=== PATIENT | female | born 1985 | race Caucasian/White ===

== ENCOUNTER → 2020-09-10 22:42 | Outpatient (REF) | payer OTHER, SELFPAY ==
[2020-09-10 21:21] LABS: MCH 29.7 pg (27.0-33.0); MCHC 32.5 % (32.0-36.0); MCV 91.3 fL (80-95); MPV 11.2 fL (8.0-11.0); Platelet Count 240 10^3/uL (130-400); RBC 4.38 10^6/uL (3.93-5.22); RDW 12.2 % (11.7-14.6); RDW-SD 40.2 fL; WBC 8.57 10^3/uL (4.4-10.8)
== END ==
LOC: NCHCN 22:42
PROVIDERS: Visit Provider Nurse Practitioner Family
DX: R53.83 Other fatigue (principal); D64.9 Anemia, unspecified
CPT/HCPCS: 85027; 84443

== ENCOUNTER 2020-12-07 16:47 | Outpatient (REF) | payer OTHER, SELFPAY ==
--- NOTE | 2020-12-07 15:30 | PAPFT_PTH ---
PATIENT: Sarina Arguello LOC: [facility] U#:[id number] AGE/SX: 35/F ROOM: RE12/07/[address]: Piedad Marte NP : 1985 BED: DIS: 12/07/2020 SPEC #: [id number] RECD: 12/07/20 17:18 STATUS: TIFFANI TIPTON #: [id number] VAMSI: 12/07/20 15:[address]: Piedad Marte NP [facility]PT[facility] RECD BY: Dayan Beal ENTERED: 12/07/20 17:18 SP TYPE: PAPFT OTHR DR: Bea Naranjo Tissues: 1 - CX/ENDOCX FOR PAP SMEARS Procedures: PAP THIN PREP/[facility] Screening Comments: [id number]
== END 2020-12-07 16:48 | disposition home or self-care (01) ==
LOC: LBN 16:47
PROVIDERS: PCP Nurse Practitioner Family; Visit Provider Nurse Practitioner Women's Health
DX: Z12.4 Encounter for screening for malignant neoplasm of cervix (principal)
CPT/HCPCS: 88142

== ENCOUNTER 2021-01-14 06:35 | Outpatient (CLI) | payer OTHER, SELFPAY ==
--- NOTE | 2021-01-14 | DI.RAD_ITS ---
EXAM: XR SACRUM COCCYX CLINICAL HISTORY: COCCYX PAIN, M53.3. TECHNIQUE: 2D digital imaging was performed. COMPARISON: No exams were available for comparison FINDINGS: There is no evidence of sacral or coccyx fracture. No osseous lesions. Incidentally noted is transitional osseous anatomy at the lumbosacral junction. Sacroiliac joints appear unremarkable. IMPRESSION: As above. No fracture evident DATA REPOSITORY: RADIATION DOSE DELIVERED:
--- NOTE | 2021-01-14 16:37 | DI.VRAD_ITS ---
PROCEDURE INFORMATION: Exam: XR Sacrum and Coccyx, 2 or More Views Exam date and time: 01/14/2021 4:19 PM Age: 35 years old Clinical indication: Other: Coccyx pain TECHNIQUE: Imaging protocol: XR of the sacrum and coccyx, 2 or more views. COMPARISON: No relevant prior studies available. FINDINGS: Bones/joints: There is mild grade 1 retrolisthesis of L5 over S1. No acute fracture or dislocation. Soft tissues: Normal. IMPRESSION: No acute fracture or dislocation. Dictated and Authenticated by: Froylan Severino MD. Ordering:JOSE LUIS Figueredo MD
== END 2021-01-14 06:55 ==
PROVIDERS: PCP Nurse Practitioner Family; Visit Provider Nurse Practitioner Family
DX: M53.3 Sacrococcygeal disorders, not elsewhere classified (principal)
CPT/HCPCS: 72220

== ENCOUNTER 2022-05-03 04:41 | Emergency (ER) | payer OTHER, SELFPAY ==
[2022-05-03 05:07] VITALS: BP 130/76; PULSE 71; RESP 16; TEMP 37.1; O2SAT 97
--- NOTE | 2022-05-03 05:15 | DI.CT_ITS ---
Exam(s) CT ABDOMEN PELVIS WO EXAM: CT ABDOMEN PELVIS WO CLINICAL HISTORY: right sided abdomen pain. TECHNIQUE: Imaging Protocol: Axial computed tomography images with coronal and sagittal reformatted images were created and reviewed. Oral: yes / no COMPARISON: No exams were available for comparison FINDINGS: ABDOMEN: Lung Bases: Normal where visualized. Liver: Normal density. No measurable mass. Gallbladder and biliary tract: No radiodense calculus or dilation. Pancreas: Normal density, no abnormal calcifications or inflammatory process. Spleen: Normal. Kidneys: Normal size, contour and axis. No radiodense stones or obstructive uropathy. No masses seen. Adrenal glands: No masses seen. Lymph nodes: Within normal limits. Abdominal Aorta: Abdominal portion non-dilated. PELVIS: Bladder: Symmetric distention, no gross wall thickening. Bowel: No obstruction or bowel wall thickening. Peritoneal cavity: There is a small amount of fluid in the cul-de-sac. Reproductive organs: Bilateral adnexal cysts, right greater than left. The right measures 8 x 5.1 x 4.8 cm. The left measures 5.4 x 4.7 x 3 5 cm. Bones: Within normal limits. IMPRESSION: Bilateral adnexal cysts. Ultrasound could be performed for further evaluation. RADIATION DOSE DELIVERED: 1,098.18mGy.cm Total DLP DATA REPOSITORY: All CT scans at this facility are submitted to the National Radiology Data Registry (NRDR) Dose Index Registry (DIR) with the [employer] (ACR). RADIATION OPTIMIZATION: All CT scans at this facility use at least one of these dose optimization te chniques: automated exposure control; mA and/or kV adjustment per patient size (includes targeted exa ms where dose is matched to clinical indication); or iterative reconstruction.
--- NOTE | 2022-05-03 05:30 | ED.GENADUL_ITS ---
Discharge Plan Disposition Patient Disposition: STILL A PATIENT Condition: Stable Discharge Details Chief Complaint: Abd Prob Clinical Impression: Abdominal pain Primary Care Provider: Bea Naranjo ED Provider: Ming Marte Home Meds and New Rx's Prescriptions: No Action Nexplanon 68 mg implant 1 implant subdermal ONCE Rx Instructions: as a single dose Medical Decision Making 36 yo female who denies chronic medical problems or prior abdominal surgeries comes in with chief complaint of abdominal pain. She states it started last night while watching television and has been constant throughout the night. She states it is a cramping and stabbing sensation in the lower right abdomen. Denies fevers, vomit, vaginal bleeding or discharge. She arrives stable speaking in full sentences. She has a soft abdomen and is tender in the rlq without guarding, no upper abdomen tenderness. Given location of the pain concern for appendicitis, will obtain labs and obtain ct to further evaluate. labs unremarkable, she remains stable, some improvement with toradol, minimal rlq tenderness on repeat exam, awaiting vrad report pt signed out to oncoming provider pending radiology read and reassessment Differential Diagnosis Differential Diagnosis: appendicitis, ovarian cyst Lab Data Lab results reviewed: Yes I reviewed the patient's lab results. HPI General Mode of arrival: ambulatory . Date/Time Provider Initiated Documentation: 05/03/22 04:42 . Limitations to Documentation: no limitations . Information obtained by: patient . History of Present Illness 36 year old F presents to the emergency department with the chief complaint of right lower abdomen pain, described as moderate, Quality is described as aching, and is localized to the abdomen. Patient reports no radiation. Patient started experiencing this day(s) (1) and it has been constant. No relieving factors improve symptom(s), No exacerbating factors reported . Patient notes no other symptoms.. Patient did receive the following treatments prior to arrival, none Related Data Home Medications Medication Instructions Recorded Confirmed etonogestrel 68 mg subdermal 1 implant subdermal ONCE 12/28/20 05/03/22 implant (Nexplanon) Allergies Allergy/AdvReac Type Severity Reaction Status Date / Time Penicillins Allergy Mild Skin Rash Verified 05/03/22 05:10 General Stated Complaint: Abd Prob EAN: 3 Review of Systems All systems reviewed & are unremarkable except as noted in HPI and below Constitutional Constitutional: Denies chills, Denies fever(s) and Denies weakness Eyes Eyes: Denies loss of vision ENT Ears, Nose, Mouth, and Throat: Denies change in voice Cardiovascular Cardiovascular: Denies chest pain and Denies dyspnea Respiratory Respiratory: Denies cough and Denies dyspnea Gastrointestinal Gastrointestinal: Denies vomiting Genitourinary Genitourinary: Denies dysuria Musculoskeletal Musculoskeletal: Denies joint swelling Neurologic Neurologic: Denies loss of vision and Denies weakness PFSH All Active Problems Abdominal pain (Acute) Presence of subdermal contraceptive implant (Acute 12/28/20) Medical History (Updated 05/03/22 @ 07:19 by Ming Marte MD) Tendonitis of shoulder, right Surgical History Cervical Conization/LEEP H/O LEEP (03/30/17) Family History Mother Addisons disease Asthma Father Personal history of malignant neoplasm lymphoma 2013 Social History Smoking/Tobacco Use Status: Former Tobacco Use Smoking risk assessment performed?: Yes Alcohol Intake: current Alcohol Intake frequency: a few times a month Drug use: Never Substance use type: does not use Do you feel safe at home: Yes Do you feel safe in your relationship?: Yes Female Reproductive History Menstrual control method: implanted History History 3 Para 2 Hx # Term Pregnancies Multiple births Hx # Pregnancies Ectopic pregnancies AB induced Hx Number of Living Children AB spontaneous 1 Exam Const General: no acute distress Orientation: alert HENMT Head: normal to inspection Ears: external ears normal General nose exam: external nose normal Mouth: moist mucous membranes Eyes General: appearance normal, both eyes and all related structures Neck Neck: normal visual inspection Resp Effort & Inspection: normal respiratory effort and able to speak in complete sentences Cardio Rate: regular rate GI Palpation: soft and tender Skin General skin exam: no rashes or lesions noted Neuro General: patient alert and patient oriented x3 Extrem General: normal to inspection Psych Mental Status: mental status grossly normal Course Vital Signs Vital signs: Vital Signs Temperature 37.1 C 05/03/22 05:07 Pulse 71 05/03/22 05:07 Respiratory Rate 16 05/03/22 05:07 Blood Pressure 130/76 05/03/22 05:07 Pulse Oximetry 97 05/03/22 05:07 Temperature 37.1 C 05/03/22 05:07 Temperature Source Skin 05/03/22 05:07 Pulse 71 05/03/22 05:07 Respiratory Rate 16 05/03/22 05:07 Respiratory Effort Short of Breath 05/03/22 05:10 Blood Pressure 130/76 05/03/22 05:07 Pulse Oximetry 97 05/03/22 05:07 Pain Level 7 05/03/22 05:07 Lab/Test Results Lab/Test Results: POC- Test(urine) Negative
[2022-05-03 06:14] LABS: Source Nasal/Nares
[2022-05-03 06:15] LABS: Abs Immature Grans 0.01 10^3/uL (0.0-0.06); Absolute Basophil Count 0.02 10^3/uL (0.0-0.2); Absolute Eosinophil Count 0.08 10^3/uL (0.0-0.7); Absolute Lymphocyte Count 1.54 10^3/uL (1.2-3.4); Absolute Monocyte Count 0.47 10^3/uL (0.1-0.8); Absolute Neutrophil Count 3.42 10^3/uL (1.2-6.7); Basophils % 0.4; Eosinophils % 1.4; HCT 37.1 % (36.0-46.0); HGB 12.2 g/dL (11.2-15.7); Immature Grans % 0.2; Lymphocytes % 27.8; MCHC 32.9 % (32.0-36.0); MCV 91 fL (80-95); MPV 10.7 fL (8.0-11.0); Monocytes % 8.5; Neutrophils % 61.7; Platelet Count 204 10^3/uL (130-400); RBC 4.07 10^6/uL (3.93-5.22); RDW 12.4 % (11.7-14.6); RDW-SD 40.9 fL; WBC 5.54 10^3/uL (4.4-10.8)
[2022-05-03] MEDS: Ketorolac 15 MG/ML VIAL IVP ×2 (06:18→08:21)
[2022-05-03] MEDS: Normal Saline 1,000 ML 1000 ML IV (06:19)
[2022-05-03 06:34] LABS: Calcium 8.3 mg/dL (8.5-10.1); Magnesium 1.9 mg/dL (1.8-2.4)
[2022-05-03 06:35] LABS: BUN 13 mg/dL (7-18); Glucose 106 mg/dL (74-106)
[2022-05-03 06:36] LABS: Albumin 3.4 g/dL (3.4-5.0); CREATININE 0.7 mg/dL (0.55-1.02); Total Protein 6.3 g/dL (6.4-8.2)
[2022-05-03 06:37] LABS: ALT 23 U/L (14-59); AST 13 U/L (15-37); Alkaline Phosphatase 73 U/L (46-116); Anion Gap 6.1 mmol/L (3-11); Bilirubin, Total 0.3 mg/dL (0.2-1.0); CO2 25.9 mmol/L (21.0-32.0); Chloride 109 mmol/L (98-107); Lipase 41 U/L (73-393); Potassium 4.3 mmol/L (3.5-5.1); Sodium 141 mmol/L (136-145)
[2022-05-03 06:46] LABS: COVID-19 PCR Negative (Negative)
[2022-05-03 07:09] LABS: Bilirubin Negative (Negative); Blood Negative (Negative); Clarity Sl Cloudy (Clear); Glucose Negative (Negative); Ketones Negative (Negative); Leukocyte Esterase Negative (Negative); Nitrite Negative (Negative); Specific Gravity 1.025 (1.005-1.025); Urobilinogen 0.2 EU/dL (Up TO 0.2)
--- NOTE | 2022-05-03 07:26 | NUR.NOTE ---
pts pain is beginning to increase, pt states 04/03 jm
--- NOTE | 2022-05-03 09:00 | DI.US_ITS ---
Exam(s) US PELVIS TRANSVAGINAL EXAM: US PELVIS TRANSVAGINAL CLINICAL HISTORY: bilateral ovarian cysts, pelvic pain TECHNIQUE: Transabdominal and transvaginal imaging was performed using standard protocol. COMPARISON: CT CT ABDOMEN PELVIS WO from 05/03/2022 FINDINGS: UTERUS: Anteverted. 8.7 x 4.5 x 5.9 cm Endometrium: 11 millimeters Myometrium: Unremarkable. Cervix: Unremarkable. OVARIES: Right: Cyst or mass: 3 simple cysts, measuring 3.2, 3.3 and 4.2 cm in greatest dimension. And Left: Cyst or mass: 4.7 centimeter maximal dimension simple cyst. DOPPLER: Color: Symmetric and uniform flow to both ovaries. No hyperemia. Duplex: Normal ovarian arterial waveforms visualized. CUL-DE-SAC: Free fluid: Small amount of fluid adjacent to both ovaries. IMPRESSION: 1. Normal-appearing uterus with endometrial stripe within normal limits. 2. Bilateral simple ovarian cysts. DATA REPOSITORY:
--- NOTE | 2022-05-03 09:02 | DI.VRAD_ITS ---
PROCEDURE INFORMATION: Exam: CT Abdomen And Pelvis Without Contrast Exam date and time: 05/03/2022 6:29 AM Age: 36 years old Clinical indication: Abdominal pain; Localized; Right lower quadrant (rlq); Patient HX: Right sided abdomen pain TECHNIQUE: Imaging protocol: Computed tomography of the abdomen and pelvis without contrast. Radiation optimization: All CT scans at this facility use at least one of these dose optimization techniques: automated exposure control; mA and/or kV adjustment per patient size (includes targeted exams where dose is matched to clinical indication); or iterative reconstruction. COMPARISON: OB US 2-3 TRIMESTER TRANSABD*P 06/06/2017 3:12 PM FINDINGS: Liver: Normal. No mass. Gallbladder and bile ducts: Normal. No calcified stones. No ductal dilation. Pancreas: Normal. No ductal dilation. Spleen: Normal. No splenomegaly. Adrenal glands: Normal. No mass. Kidneys and ureters: Normal. No hydronephrosis. Stomach and bowel: Unremarkable. No obstruction. No mucosal thickening. Appendix: No evidence of appendicitis. Intraperitoneal space: See Reproductive finding. Vasculature: Unremarkable. No abdominal aortic aneurysm. Lymph nodes: Unremarkable. No enlarged lymph nodes. Urinary bladder: Unremarkable as visualized. Reproductive: There is a right adnexal cystic structure measuring 8.0 x 5.1 x 4.8 cm (series 2, image 76). There is a left adnexal cystic structure measuring 5.4 x 4.7 x 3.5 cm (series 2, image 78). Small volume of free fluid within the pelvis. Bones/joints: Unremarkable. No acute fracture. Soft tissues: Unremarkable. IMPRESSION: 1. There is a right adnexal cystic structure measuring 8.0 x 5.1 x 4.8 cm (series 2, image 76). 2. There is a left adnexal cystic structure measuring 5.4 x 4.7 x 3.5 cm (series 2, image 78). Small volume of free fluid within the pelvis. Further evaluation with ultrasound is recommended to characterize. (Reference: Jluis) References: Jluis et al. Management of Incidental Adnexal Findings on CT and MRI: A White Paper of the ACR Incidental Findings Committee, J Am Steve Radiol. 2019;17(2):248-254. Dictated and Authenticated by: John Tesfaye MD. Ordering:RYLEY Lai MD
[2022-05-03 09:39] VITALS: BP 111/70; PULSE 63; RESP 18; TEMP 36.7; O2SAT 97
--- NOTE | 2022-05-03 11:33 | PDOC.ERCMPRO ---
- If Service Date Differs Date of service: 05/03/22 Time of Service: 11:33 Care Management Progress Note SBIRT screen: negative. Pt reports low risk alcohol use and no other substance use or mental health symptoms.
--- NOTE | 2022-05-03 11:38 | W.EDPROG ---
Date of service: 05/03/22 Time of Service: 11:38 Medical Decision Making Patient resting comfortably no acute distress. Evidence of bilateral ovarian cyst. No evidence of ovarian torsion on ultrasound. Patient will follow up with women's wellness. Given home care instructions and return precautions given. Sign Out Sign Out Data: Sign Out Comment: right lower abdomen pain since last night, labs unremarkable, pending CT results and reassessment Last updated by Ming Marte MD at 05/03/22 07:20 Discharge Plan Disposition Patient Disposition: HOME Condition: Improving Discharge Details Clinical Impression: Abdominal pain, Ovarian cyst Primary Care Provider: Bea Naranjo ED Provider: Dennis Marrero Home Meds and New Rx's Prescriptions: No Action Nexplanon 68 mg implant 1 implant subdermal ONCE Rx Instructions: as a single dose Discharge Instructions Instructions: Ovarian Cyst (ED) Additional Instructions: Please follow-up with women's wellness this week or next week. Please return to the emergency department for any worsening symptoms.
== END 2022-05-03 11:48 | disposition home or self-care (01) ==
PROVIDERS: Emergency Medicine; Emergency Provider Emergency Medicine; PCP Nurse Practitioner Family
DX: N83.201 Unspecified ovarian cyst, right side (principal); N83.202 Unspecified ovarian cyst, left side; Z87.891 Personal history of nicotine dependence; Z97.5 Presence of (intrauterine) contraceptive device; Z20.822 Contact with and (suspected) exposure to COVID-19
CPT/HCPCS: 80053; 81025; 83690; 87635; 96361; 96374; 96376; 99284; 74176; 76830; 76856; 81003; 83735; 85025; J1885

== ENCOUNTER 2022-05-08 20:34 | Emergency (ER) | payer OTHER, SELFPAY ==
[2022-05-08 21:12] VITALS: BP 135/77; PULSE 64; RESP 18; TEMP 37.1; O2SAT 100
[2022-05-08 21:29] LABS: Abs Immature Grans 0.02 10^3/uL (0.0-0.06); Absolute Basophil Count 0.02 10^3/uL (0.0-0.2); Absolute Eosinophil Count 0.04 10^3/uL (0.0-0.7); Absolute Monocyte Count 0.54 10^3/uL (0.1-0.8); Basophils % 0.3; Eosinophils % 0.5; HCT 36.6 % (36.0-46.0); HGB 12.3 g/dL (11.2-15.7); Immature Grans % 0.3; Lymphocytes % 22.7; MCH 30.1 pg (27.0-33.0); MCHC 33.6 % (32.0-36.0); MCV 90 fL (80-95); MPV 10.8 fL (8.0-11.0); Monocytes % 6.8; Neutrophils % 69.4; Platelet Count 219 10^3/uL (130-400); RBC 4.08 10^6/uL (3.93-5.22); RDW 12.1 % (11.7-14.6); RDW-SD 39.6 fL; WBC 7.92 10^3/uL (4.4-10.8)
--- NOTE | 2022-05-08 21:35 | W.ED.GENAD ---
Discharge Plan Disposition Patient Disposition: HOME Condition: Improving Discharge Details Clinical Impression: Abdominal pain Primary Care Provider: Bea Naranjo ED Provider: Gera Lloyd Home Meds and New Rx's Prescriptions: Continued Nexplanon 68 mg implant 1 implant subdermal ONCE Rx Instructions: as a single dose ibuprofen 800 mg tablet 800 mg PO Q6H Discharge Instructions Instructions: Abdominal Pain (ED) Additional Instructions: Oxycodone as directed, this medication may cause drowsiness and/or constipation. Continue taking ibuprofen as directed. You may want to consider taking [id number] stool softener while taking oxycodone. Please watch for new or worsening symptoms and return to the ER for any concerns. Lastly, I would like you to contact your RADIOLOGY EQUIPMENT SERVICER tomorrow to make them aware of your return ER visit, ongoing pain, need for outpatient reevaluation. Medical Decision Making This is an otherwise healthy 36-year-old female presenting to the ER for 2-week history of right lower quadrant pain intermittent but now worse today, initially seen in the ER on Monday, CT and ultrasound revealed ovarian cyst, subsequently followed up with her RADIOLOGY EQUIPMENT SERVICER and set for a 6-week ultrasound. Patient reports that she is sexually active with 1 partner, no risk of STD. She denies fever, vomiting, back pain, dysuria, hematuria, diarrhea or constipation. Reports that she has her menstrual cycle now which seems to be normal, no additional discharge. Clinically she appears well, nontoxic, hemodynamically stable. Patient does have right lower quadrant discomfort however no rebound or McBurney point tenderness. She has no fever, denies lack of appetite, low suspicion for appendicitis. Symptoms have been present for 2 weeks, low suspicion for ovarian torsion. We discussed awaiting a test before providing IV Toradol but patient states that there is no way she could be , she has her menstrual cycle currently, and she has the Nexplanon implant. Plan is to obtain IV access, give IV Toradol, obtain routine screening laboratory values and reassess. CBC, CMP, lipase all unremarkable. Patient unable to provide a urine sample Patient reports no relief with IV Toradol. We discussed repeat CT imaging tonight, heading up for ultrasound tomorrow, and a pelvic exam. At this time patient declines this more focused on pain control. We will provide 1 mg IV Dilaudid. Patient reports significant relief of discomfort. She states that she is ready to be discharged home. I reminded her that she has not provided a urine sample. She was able to immediately provide a urine sample. Reveals large blood greater than 50 red cells, no signs of infection, patient does have her period and likely contamination. Examination is not consistent with renal stone. Discussed results with patient. She is again requesting discharge. She is concerned that her pain may come back overnight. We will provide a take-home pack of oxycodone Strict discharge and return precautions were provided. Patient understands, is agreeable to this plan, and has no additional questions or concerns upon discharge. This documentation was generated using [employer] system, please disregard any oddities of phrase or misspellings. Medical Records Medical records reviewed: Yes I reviewed the patient's medical records. Lab Data Lab results reviewed: Yes I reviewed the patient's lab results. Labs: Laboratory Tests Range/Units 05/08/22 05/08/22 05/08/22 21:20 21:20 22:35 WBC (4.4-10.8) 10^3/uL 7.92 RBC (3.93-5.22) 10^6/uL 4.08 Hgb (11.2-15.7) g/dL 12.3 Hct (36.0-46.0) % 36.6 MCV (80-95) fL 90 MCH (27.0-33.0) pg 30.1 MCHC (32.0-36.0) % 33.6 RDW (11.7-14.6) % 12.1 Plt Count (130-400) 10^3/uL 219 MPV (8.0-11.0) fL 10.8 Immature Gran % 0.3 Neutrophils % 69.4 Lymphocytes % 22.7 Monocytes % 6.8 Eosinophils % 0.5 Basophils % 0.3 Nucleated RBC % (0.0-0.3) % 0.0 Absolute Neutrophils (1.2-6.7) 10^3/uL 5.50 Absolute Lymphocytes (1.2-3.4) 10^3/uL 1.80 Absolute Monocytes (0.1-0.8) 10^3/uL 0.54 Absolute Eosinophils (0.0-0.7) 10^3/uL 0.04 Absolute Basophils (0.0-0.2) 10^3/uL 0.02 Sodium (136-145) mmol/L 142 Potassium (3.5-5.1) mmol/L 3.8 Chloride (98-107) mmol/L 108 H Carbon Dioxide (21.0-32.0) mmol/L 27.4 Anion Gap (3-11) mmol/L 6.6 BUN (7-18) mg/dL 11 Creatinine (0.55-1.02) mg/dL 0.7 Estimated GFR/1.73 m2 (mL/min/1.73m2) >= 60.00 Glucose (74-106) mg/dL 109 H Calcium (8.5-10.1) mg/dL 8.2 L Total Bilirubin (0.2-1.0) mg/dL 0.4 AST (15-37) U/L 10 L ALT (14-59) U/L 24 Alkaline Phosphatase (46-116) U/L 79 Total Protein (6.4-8.2) g/dL 6.6 Albumin (3.4-5.0) g/dL 3.6 Lipase (73-393) U/L 57 Urine Color (Yellow) Yellow Urine Clarity (Clear) Sl Cloudy Urine pH (5-8) 6.0 Ur Specific [place] (1.005-1.025) >= 1.030 H Urine Protein (Negative) mg/dL 30 H Urine Ketones (Negative) mg/dL Negative Urine Blood (Negative) Large H Urine Nitrite (Negative) Negative Urine Bilirubin (Negative) Negative Urine Urobilinogen (Up TO 0.2) EU/dL 0.2 Ur Leukocyte Esterase (Negative) Negative Urine RBC (0-2) HPF >50 H Urine WBC (0-5) HPF Ur Epithelial Cells (Negative) HPF Moderate Urine Crystals Not Applicable Urine Bacteria (Negative) HPF Urine Mucus (Negative) Ur Culture Indicated? No/Sq. Contamination Urine Glucose (Negative) mg/dL Negative HPI General Mode of arrival: ambulatory. Date/Time Provider Initiated Documentation: 05/08/22 20:36. Limitations to Documentation: no limitations. Information obtained by: patient. History of Present Illness 36 year old F presents to the emergency department with the chief complaint of RLQ pain, described as moderate, with intensity rated at 7. Quality is described as aching and sharp, and is localized to the abdomen and right. Patient reports no radiation. Patient started experiencing this week(s) and it has been intermittent. No relieving factors improve symptom(s), No exacerbating factors reported . Patient notes nausea/vomiting (Occasionally nausea). Patient did receive the following treatments prior to arrival, other (Acetaminophen) Related Data Home Medications Medication Instructions Recorded Confirmed etonogestrel 68 mg subdermal 1 implant subdermal ONCE 12/28/20 05/08/22 implant (Nexplanon) ibuprofen 800 mg tablet 800 mg PO Q6H 05/04/22 05/04/22 Allergies Allergy/AdvReac Type Severity Reaction Status Date / Time Penicillins Allergy Mild Skin Rash Verified 05/08/22 21:17 General Stated Complaint: RADIOLOGY EQUIPMENT SERVICER EAN: 3 Review of Systems Constitutional Constitutional: Denies fever(s) Cardiovascular Cardiovascular: Denies chest pain and Denies dyspnea Respiratory Respiratory: Denies dyspnea Gastrointestinal Gastrointestinal: Reports abdominal pain, Denies constipation, Denies diarrhea, Reports nausea and Denies vomiting Genitourinary Genitourinary: Denies abnormal vaginal bleeding, Denies dysuria and Denies vaginal discharge Comments: Currently has her menstrual Musculoskeletal Musculoskeletal: Denies back pain Integumentary/Breasts Skin/Breast: Denies rash PFSH All Active Problems Abdominal pain (Acute) Ovarian cyst (Acute) Presence of subdermal contraceptive implant (Acute 12/28/20) Medical History Tendonitis of shoulder, right Surgical History Cervical Conization/LEEP H/O LEEP (03/30/17) Family History Mother Addisons disease Asthma Father Personal history of malignant neoplasm lymphoma 2013 Social History Smoking/Tobacco Use Status: Former Tobacco Use Smoking risk assessment performed?: Yes Alcohol Intake: current Alcohol Intake frequency: a few times a month Drug use: Never Substance use type: does not use Do you feel safe at home: Yes Do you feel safe in your relationship?: Yes Female Reproductive History Menstrual control method: implanted History History 3 Para 2 Hx # Term Pregnancies Multiple births Hx # Pregnancies Ectopic pregnancies AB induced Hx Number of Living Children 2 AB spontaneous 1 Exam Const General: cooperative, healthy appearing, comfortable and no acute distress Orientation: alert and awake [facility] Head: normal to inspection, normocephalic and atraumatic Eyes Conjunctivae: conjunctivae normal Neck Neck: normal visual inspection, full ROM, trachea midline and supple Resp Effort & Inspection: normal respiratory effort and able to speak in complete sentences Auscultation: clear to auscultation bilaterally Cardio Rate: regular rate Rhythm: regular rhythm GI Inspection: normal to inspection Palpation: soft, not firm, no guarding, no pulsatile masses and tender in the RLQ; not at McBurney's point, with no rebound tenderness and Rovsing's sign negative Auscultation: normal bowel sounds Back/Spine/Pelvis Back: no CVA tenderness and No back tenderness Skin General skin exam: no rashes or lesions noted Neuro General: patient alert, patient awake, moves all extremities and no focal motor deficits Cognition: normal cognition Speech: speech normal Gait: normal gait Sensory Exam: no sensory deficits noted Psych Appearance: grossly normal Mental Status: mental status grossly normal Course Vital Signs Vital signs: Vital Signs Temperature 37.1 C 05/08/22 21:12 Pulse 64 05/08/22 21:12 Respiratory Rate 18 05/08/22 21:12 Blood Pressure 135/77 05/08/22 21:12 Pulse Oximetry 100 05/08/22 21:12 Temperature 37.1 C 05/08/22 21:12 Pulse 64 05/08/22 21:12 Respiratory Rate 18 05/08/22 21:12 Respiratory Effort Non-Labored 05/08/22 21:15 Blood Pressure 135/77 05/08/22 21:12 Blood Pressure Position Supine 05/08/22 21:12 Pulse Oximetry 100 05/08/22 21:12 Oxygen Delivery Method Room Air 05/08/22 21:12 Oxygen Flow Rate 0 05/08/22 21:12 Pain Level 10 05/08/22 21:16
[2022-05-08 21:44] LABS: ALT 24 U/L (14-59); AST 10 U/L (15-37); Albumin 3.6 g/dL (3.4-5.0); Alkaline Phosphatase 79 U/L (46-116); Anion Gap 6.6 mmol/L (3-11); BUN 11 mg/dL (7-18); Bilirubin, Total 0.4 mg/dL (0.2-1.0); CO2 27.4 mmol/L (21.0-32.0); CREATININE 0.7 mg/dL (0.55-1.02); Calcium 8.2 mg/dL (8.5-10.1); Chloride 108 mmol/L (98-107); Glucose 109 mg/dL (74-106); Lipase 57 U/L (73-393); Potassium 3.8 mmol/L (3.5-5.1); Sodium 142 mmol/L (136-145); Total Protein 6.6 g/dL (6.4-8.2)
[2022-05-08] MEDS: Ketorolac 30 MG/ML VIAL IVP (21:51)
[2022-05-08] MEDS: HYDROmorphone 2 MG/ML VIAL 1 MG IVP (22:11)
[2022-05-08 22:45] LABS: Bilirubin Negative (Negative); Blood Large (Negative); Clarity Sl Cloudy (Clear); Glucose Negative (Negative); Ketones Negative (Negative); Leukocyte Esterase Negative (Negative); Nitrite Negative (Negative); Specific Gravity >= 1.030 (1.005-1.025); Urobilinogen 0.2 EU/dL (Up TO 0.2)
[2022-05-08 22:52] LABS: Epithelial Cells Moderate HPF (Negative); RBC >50 HPF (0-2)
[2022-05-08 22:53] LABS: C & S Indicated? No/Sq. Contamination
== END 2022-05-08 23:18 | disposition home or self-care (01) ==
PROVIDERS: Emergency Provider Physician Assistant; PCP Nurse Practitioner Family
DX: R10.31 Right lower quadrant pain (principal)
CPT/HCPCS: 80053; 83690; 96374; 96375; 99284; 81003; 81015; 85025; 99283; J1885

== ENCOUNTER 2022-09-07 08:50 | Emergency (ER) | payer OTHER, SELFPAY ==
[2022-09-07 09:00] VITALS: BP 133/103; PULSE 104; RESP 18; TEMP 36.8; O2SAT 97
--- NOTE | 2022-09-07 09:15 | DI.RAD_ITS ---
Exam(s) XR PORTABLE CHEST AP EXAM: XR PORTABLE CHEST AP CLINICAL HISTORY: cough TECHNIQUE: 2D digital imaging was performed of the chest. One image was obtained. An AP view was ob tained. COMPARISON: CR CHEST 2 VIEWS PA,LAT from 01/27/2012 FINDINGS: MEDIASTINUM: Normal. HEART: Normal. PULMONARY VASCULATURE: Normal. LUNGS: Clear. PLEURAL SPACE: No pleural effusion or pneumothorax. BONE:Within normal limits for the patient's age. OTHER FINDINGS:Normal. IMPRESSION: No acute pulmonary findings. DATA REPOSITORY: RADIATION DOSE DELIVERED:
--- NOTE | 2022-09-07 09:27 | ED.GENADUL_ITS ---
Discharge Plan Disposition Patient Disposition: Home Condition: Stable Discharge Details Clinical Impression: Influenza A Primary Care Provider: Bea Naranjo ED Provider: Ming Marte Home Meds and New Rx's Prescriptions: New oseltamivir 75 mg capsule 75 mg PO Q12H 5 Days Qty: 10 0RF Continued Nexplanon 68 mg implant 1 implant subdermal ONCE Rx Instructions: as a single dose ibuprofen 800 mg tablet 800 mg PO Q6H levonorgestrel-ethinyl estrad 0.1-20 mg-mcg tablet 1 tab PO DAILY Qty: 84 4RF Discharge Instructions Instructions: Influenza (ED) Additional Instructions: if not better within a week follow up with your primary care provider if you feel more ill, have worsening trouble breathing or persistent vomiting return to the emergency department Medical Decision Making 37 yo female who denies chronic medical problems, denies smoking or drug use, comes in with sore throat since Monday and intermittent fevers to 102 as well as body aches and dry cough. She denies any rashes, chest pain, dyspnea, abdominal pain, n/v, neck stiffness. She arrives stable speaking in full sentences with clear lung sounds. She has no murmurs, soft nontender abdomen, no rashes noted. She has clear rhinorrhea, normal conjunctiva, no facial swelling, mild erythema of posterior pharynx, midline uvula, no restricted neck movements, no pain over the hyoid. Her constellation of symptoms seems consistent with viral uri or flu, will obtain fluvid and cxr, along with cbc and cmp. 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 Stable vitals, discussed with pt and she is comfortable with d/c, advised to f/u with pcp if not improving and return precautions given Differential Diagnosis Differential Diagnosis: uri, flu, covid Imaging Data Radiologic Study: Attestation: I personally reviewed and interpreted this imaging study as follows: Imaging: X-Ray My impression: no acute findings Lab Data Lab results reviewed: Yes I reviewed the patient's lab results. Sign Out No HPI General Mode of arrival: ambulatory . Date/Time Provider Initiated Documentation: 09/07/22 09:00 . Limitations to Documentation: no limitations . Information obtained by: patient . History of Present Illness 37 year old F presents to the emergency department with the chief complaint of sore throat, described as moderate, Patient started experiencing this day(s) (5) and it has been constant. No relieving factors improve symptom(s), No exacerbating factors reported . Patient notes cough and fever/chills. Patient did receive the following treatments prior to arrival, none Related Data Home Medications Medication Instructions Recorded Confirmed etonogestrel 68 mg subdermal 1 implant subdermal ONCE 12/28/20 08/22/22 implant (Nexplanon) ibuprofen 800 mg tablet 800 mg PO Q6H 05/04/22 08/22/22 levonorgestrel-ethinyl estradiol 1 tab PO DAILY #84 tabs 06/21/22 08/22/22 0.1 mg-20 mcg tablet oseltamivir 75 mg capsule 75 mg PO Q12H 5 days #10 caps 09/07/22 Previous Rx's Medication Instructions Recorded levonorgestrel-ethinyl estradiol 1 tab PO DAILY #84 tabs 06/21/22 0.1 mg-20 mcg tablet oseltamivir 75 mg capsule 75 mg PO Q12H 5 days #10 caps 09/07/22 Allergies Allergy/AdvReac Type Severity Reaction Status Date / Time Penicillins Allergy Mild Skin Rash Verified 08/22/22 15:29 General Stated Complaint: GenMedical EAN: 3 Review of Systems All systems reviewed & are unremarkable except as noted in HPI and below Constitutional Constitutional: Denies chills Cardiovascular Cardiovascular: Denies chest pain and Denies dyspnea Respiratory Respiratory: Denies dyspnea Gastrointestinal Gastrointestinal: Denies abdominal pain, Denies nausea and Denies vomiting Genitourinary Genitourinary: Denies dysuria Integumentary/Breasts Skin/Breast: Denies rash PFSH All Active Problems Influenza A (Acute) Ovarian cyst (Acute) Pelvic pain (Acute) Presence of subdermal contraceptive implant (Acute 12/28/20) Medical History Tendonitis of shoulder, right Surgical History Cervical Conization/LEEP H/O LEEP (03/30/17) Family History Mother Addisons disease Asthma Father Personal history of malignant neoplasm lymphoma 2013 Social History Smoking/Tobacco Use Status: Former Tobacco Use Smoking risk assessment performed?: Yes Alcohol Intake: current Alcohol Intake frequency: a few times a month Drug use: Never Substance use type: does not use Do you feel safe at home: Yes Do you feel safe in your relationship?: Yes Female Reproductive History Menstrual Age of Menarche: 13 Duration of menses: 6-7 days control method: implanted History History 3 Para 2 Hx # Term Pregnancies Multiple births Hx # Pregnancies Ectopic pregnancies AB induced Hx Number of Living Children 2 AB spontaneous 1 Past Pregnancies Del. Date GA/Weeks # Preg Succ Route Wgt Sex Labor Lgth Anesth esia Location Prov Complic 12/18/11 40 No Yes vaginal 3713.788 g Male [facility] 10/25/17 40 No Yes vaginal 3798.836 g Male [facility] Exam Const General: no acute distress Orientation: alert HENMT Head: normal to inspection Ears: external ears normal General nose exam: external nose normal Mouth: moist mucous membranes Eyes General: appearance normal, both eyes and all related structures Neck Neck: normal visual inspection Resp Effort & Inspection: normal respiratory effort, able to speak in complete sentences and no audible wheezes Auscultation: clear to auscultation bilaterally Cardio Jugular venous pressure: no JVD Rate: regular rate Heart Sounds: no murmurs GI Palpation: soft and nontender Skin General skin exam: no rashes or lesions noted Neuro General: patient alert and patient oriented x3 Extrem General: normal to inspection Psych Mental Status: mental status grossly normal Course Vital Signs Vital signs: Vital Signs Temperature 36.8 C 09/07/22 09:00 Pulse 104 H 09/07/22 09:00 Respiratory Rate 18 09/07/22 09:00 Blood Pressure 133/103 H 09/07/22 09:00 Pulse Oximetry 97 09/07/22 09:00 Temperature 36.8 C 09/07/22 09:00 Temperature Source Oral 09/07/22 09:00 Pulse 104 H 09/07/22 09:00 Respiratory Rate 18 09/07/22 09:00 Blood Pressure 133/103 H 09/07/22 09:00 Blood Pressure Position Sitting 09/07/22 09:00 Pulse Oximetry 97 09/07/22 09:00 Oxygen Delivery Method Room Air 09/07/22 09:00 Oxygen Flow Rate 0 09/07/22 09:00 Pain Level 3 09/07/22 09:00
[2022-09-07 10:20] VITALS: RESP 16
[2022-09-07 10:23] LABS: Abs Immature Grans 0.03 10^3/uL (0.0-0.06); Absolute Basophil Count 0.02 10^3/uL (0.0-0.2); Absolute Eosinophil Count 0.01 10^3/uL (0.0-0.7); Absolute Lymphocyte Count 1.17 10^3/uL (1.2-3.4); Absolute Monocyte Count 0.65 10^3/uL (0.1-0.8); Absolute Neutrophil Count 6.34 10^3/uL (1.2-6.7); Basophils % 0.2; Eosinophils % 0.1; HCT 37.8 % (36.0-46.0); HGB 12.7 g/dL (11.2-15.7); Immature Grans % 0.4; Lymphocytes % 14.2; MCH 29.3 pg (27.0-33.0); MCHC 33.6 % (32.0-36.0); MCV 87 fL (80-95); MPV 10.2 fL (8.0-11.0); Monocytes % 7.9; Neutrophils % 77.2; Platelet Count 218 10^3/uL (130-400); RBC 4.33 10^6/uL (3.93-5.22); RDW 11.8 % (11.7-14.6); RDW-SD 37.8 fL; WBC 8.22 10^3/uL (4.4-10.8)
[2022-09-07 10:33] LABS: COVID-19 PCR Negative (Negative); Influenza A PCR Positive (Negative); Influenza B PCR Negative (Negative); RSV PCR Negative (Negative)
[2022-09-07 10:36] LABS: ALT 23 U/L (14-59); AST 13 U/L (15-37); Albumin 3.1 g/dL (3.4-5.0); Alkaline Phosphatase 100 U/L (46-116); Anion Gap 8.1 mmol/L (3-11); BUN 8 mg/dL (7-18); Bilirubin, Total 0.7 mg/dL (0.2-1.0); CO2 28.9 mmol/L (21.0-32.0); CREATININE 0.6 mg/dL (0.55-1.02); Calcium 8.5 mg/dL (8.5-10.1); Chloride 100 mmol/L (98-107); Estimated GFR 119.97 (mL/min/1.73m2); Glucose 102 mg/dL (74-106); Potassium 3.4 mmol/L (3.5-5.1); Sodium 137 mmol/L (136-145); Total Protein 7.1 g/dL (6.4-8.2)
[2022-09-07 11:26] VITALS: BP 107/62; PULSE 80; RESP 19; TEMP 37.1; O2SAT 97
[2022-09-07 11:28] VITALS: BP 107/62; PULSE 80; RESP 19; TEMP 37.1; O2SAT 97
== END 2022-09-07 11:31 | disposition home or self-care (01) ==
PROVIDERS: Emergency Provider Emergency Medicine; PCP Nurse Practitioner Family
DX: J10.1 Influenza due to other identified influenza virus with other respiratory manifestations (principal); Z20.822 Contact with and (suspected) exposure to COVID-19
CPT/HCPCS: 36415; 80053; 87637; 87880; 96361; 96374; 99284; 71045; 85025; 87081

== ENCOUNTER 2024-07-15 02:38 | Outpatient (CLI) | payer BC, SELFPAY ==
[2024-07-15 17:40] LABS: TSH (W/Ref FT4) 1.31 uIU/mL (0.36-3.74)
== END 2024-07-15 02:39 | disposition home or self-care (01) ==
PROVIDERS: PCP Nurse Practitioner Family; Visit Provider Nurse Practitioner Family
DX: E04.2 Nontoxic multinodular goiter (principal)
CPT/HCPCS: 36415; 84443

== ENCOUNTER 2024-08-14 14:48 | Outpatient (REF) | payer BC, SELFPAY ==
--- NOTE | 2024-08-14 13:25 | PAPFT_PTH ---
PATIENT: Sarina Arguello LOC: [facility] U#:[id number] AGE/SX: 39/F ROOM: RE08/14/[address]: Piedad Marte NP : 1985 BED: DIS: 08/14/2024 SPEC #: [id number] RECD: 08/14/24 17:58 STATUS: TIFFANI RECuca #: [id number] VAMSI: 08/14/24 13:[address]: Piedad Marte NP DEPT: [facility] Cytology RECD BY: Dayan Beal ENTERED: 08/14/24 17:58 SP TYPE: PAPFT OTHR DR: Bea Naranjo Tissues: 1 - CX/ENDOCX FOR PAP SMEARS Procedures: PAP THIN PREP/[facility] Screening HPV DNA PROBE Comments: [id number] (HPV 16 7 18/45)
== END 2024-08-14 14:49 | disposition home or self-care (01) ==
LOC: LBN 14:48
PROVIDERS: PCP Nurse Practitioner Family; Visit Provider Nurse Practitioner Women's Health
DX: Z01.419 Encounter for gynecological examination (general) (routine) without abnormal findings (principal); Z30.41 Encounter for surveillance of contraceptive pills; Z97.5 Presence of (intrauterine) contraceptive device; Z12.4 Encounter for screening for malignant neoplasm of cervix
CPT/HCPCS: 88142; 87624

== ENCOUNTER → 2025-08-11 01:59 | Outpatient (CLI) | payer BC, SELFPAY ==
--- NOTE | 2025-08-11 | DI.MAMMO_ITS ---
Exam(s) US BREAST LT COMPLETE MAMMO DIAGNOSTIC BI EXAM: MAMMO DIAGNOSTIC BI CLINICAL HISTORY: MASS IN MULTIPLE QUAD LT BREAST N63.25 PALPABLE DENSITY MEDIAL OUTER QUAD L. COMPARISON: US US BREAST LT COMPLETE from 08/11/2025 TECHNIQUE: Craniocaudal and mediolateral oblique Full Field Digital Mammography views of both breasts with Computer Aided Diagnosis followed by Tomosynthesis and left breast ultrasound. FINDINGS: Mammography/Tomosynthesis: Masses: None seen. Architectural Distortion: None seen. Microcalcifications: No suspicious pleomorphic-type are seen. Skin Thickening/Nipple Retraction: None. Left breast US: Echotexture: Normal appearance of the glandular tissue. Shadowing: No suspicious foci. Cyst: 9 x 6 by 8 millimeter cyst 12 o'clock position, 5 cm from the nipple. Additional 6 x 3 x 4 millimeter cyst in the 2 o'clock position 2 cm from the nipple. Other small cysts also noted. Solid lesions: None seen. Ductal dilation: None. IMPRESSION: 1. No evidence of malignancy is noted. 2. Unless there is more urgent need, follow-up screening mammography is recommended, as per [employer] guidelines. BI-RADS Category 2 - Benign Findings Breast Density - Category B - There are scattered areas of fibroglandular density. Breast density Category C or D implies that the patient has dense breast tissue. Dense breast tissue can make it harder to find cancer on a mammogram. Dense breast tissue is also associated with an increased risk of breast cancer. This information about the result of the mammogram report was provided to the patient to raise their awareness. Use this report when you speak with the patient about their risks for breast cancer, which includes their family history. At that time, you may recommend additional screening tests (Ultrasound or MRI) as these tests may add significant information. A negative radiographic report should not delay biopsy if a dominant or clinically suspicious mass is present. Up to ten percent of cancers are not identified on mammography. A negative report may reinforce clinical impression. Adenosis and dense breasts may obscure an underlying neoplasm. False positive reports average 6 to 10%. Patient will receive a letter notifying them of these results.
== END ==
LOC: DI 01:59
PROVIDERS: PCP Nurse Practitioner Family; Visit Provider Nurse Practitioner Family
DX: N63.25 Unspecified lump in the left breast, overlapping quadrants (principal); Z12.31 Encounter for screening mammogram for malignant neoplasm of breast
CPT/HCPCS: 76642; 77062; 77066; G0279